=== PATIENT | female | born 1970 | race Two or more races ===

== ENCOUNTER → 2022-04-06 | Outpatient (CLI) | payer BC ==
[2022-04-07 10:16] LABS: Stool Occult Bld Immuno 1 Negative (NEGATIVE)
== END | disposition home or self-care (01) ==
LOC: LAB SHORT 04:19
PROVIDERS: Physician Assistant
DX: Z12.11 Encounter for screening for malignant neoplasm of colon (principal); Z12.12 Encounter for screening for malignant neoplasm of rectum
CPT/HCPCS: G0328

== ENCOUNTER → 2022-04-07 | Outpatient (CLI) | payer BC ==
[2022-04-15 15:11] LABS: HPV 16 Negative (Negative); HPV 18 Negative (Negative); HPV OTHER HR TYPES Positive (Negative)
== END | disposition home or self-care (01) ==
LOC: LAB 16:53 → LAB SHORT 16:53
PROVIDERS: Physician Assistant
DX: Z01.419 Encounter for gynecological examination (general) (routine) without abnormal findings (principal)
CPT/HCPCS: 87624; 87625; 88175

== ENCOUNTER → 2023-04-09 | Outpatient (CLI) | payer BC ==
[2023-04-23 08:17] LABS: HPV GENOTYPE 16 Not Detected; HPV GENOTYPE 18 Not Detected; HPV HIGH RISK Not Detected; HPV SOURCE Cervical
== END ==
LOC: LAB SHORT 17:19 → LAB 17:19
PROVIDERS: Physician Assistant
DX: Z01.419 Encounter for gynecological examination (general) (routine) without abnormal findings (principal)
CPT/HCPCS: 87624; G0123

== ENCOUNTER → 2024-04-21 | Outpatient (CLI) | payer BC ==
[2024-04-27 06:11] LABS: HPV HIGH RISK BY TMA Not Detected; HPV SOURCE Cervical
== END | disposition home or self-care (01) ==
LOC: LAB 17:44 → LAB SHORT 17:44
PROVIDERS: Physician Assistant
DX: Z01.419 Encounter for gynecological examination (general) (routine) without abnormal findings (principal)
CPT/HCPCS: 87624; G0123

== ENCOUNTER 2025-04-23 14:03 | Day surgery (SDC) | payer BC ==
[~2025-04-23] VITALS: Ht 172.7 cm; Wt 130.3 kg
[2025-04-23 14:25] VITALS: BP 143/80
[2025-04-23] MEDS ORDERED: METF500 PO (14:29)
[2025-04-23] MEDS ORDERED: OLME5TAB (14:29)
[2025-04-23] MEDS ORDERED: Prozac20 MG PO (14:30)
--- NOTE | 2025-04-23 14:31 | NUR ---
PT TO UNIT AMBULATORY WITH STEADY GAIT. ABLE TO USE THE RESTROOM INDEPENDENTLY. History, Chart, Medications and Allergies reviewed before start of procedure. Pre-Op teaching done. Pt verbalizes understanding. Patient States Post-Procedure ride home has been arranged WITH FRIEND. BELONGINGS INCLUDING PURSE AND GLASSES LEFT IN DAY SURGERY BAY. WARM BLANKET PROVIDED.
--- NOTE | 2025-04-23 15:20 | NUR ---
04/23/25 1520 Demian Clinton MONITOR INTACT WITH CONTINUOUS PULSE OXIMETRY, CONTINUOUS END TITAL CO2, 3-LEAD EKG AND INTERMITTENT BLOOD PRESSURE. O2 VIA POM INTACT THROUGHOUT SEDATION/PROCEDURE. History, Chart, Medications and Allergies reviewed before start of procedure. Bite Block Placed AT START OF UPPER ENDOSCOPY.
[2025-04-23 16:03] VITALS: BP 119/72
[2025-04-23 16:11] VITALS: BP 122/81
--- NOTE | 2025-04-23 16:32 | NUR ---
Discharge instructions reviewed with patient. Patient verbalizes understanding. Copy given to patient to take home. Discharged via wheelchair to private car for ride home.
== END 2025-04-23 16:30 | disposition home or self-care (01) ==
LOC: ORSCMMR 14:03 → ORD 15:30 → ORSCMMR 16:30
PROVIDERS: Family Medicine
PROC: 0DB98ZX Excision of Duodenum, Via Natural or Artificial Opening Endoscopic, Diagnostic (ICD-10-PCS; principal; 2025-04-23 15:30)
PROC: 0DB78ZX Excision of Stomach, Pylorus, Via Natural or Artificial Opening Endoscopic, Diagnostic (ICD-10-PCS; principal; 2025-04-23 15:30)
PROC: 0DBN8ZX Excision of Sigmoid Colon, Via Natural or Artificial Opening Endoscopic, Diagnostic (ICD-10-PCS; principal; 2025-04-23 15:30)
PROC: 0DBP8ZX Excision of Rectum, Via Natural or Artificial Opening Endoscopic, Diagnostic (ICD-10-PCS; principal; 2025-04-23 15:30)
DX: Z12.11 Encounter for screening for malignant neoplasm of colon (principal); K63.5 Polyp of colon; K62.1 Rectal polyp; Z01.818 Encounter for other preprocedural examination; K31.7 Polyp of stomach and duodenum; K29.80 Duodenitis without bleeding; K29.70 Gastritis, unspecified, without bleeding; E66.01 Morbid (severe) obesity due to excess calories; Z68.42 Body mass index [BMI] 45.0-49.9, adult; G47.33 Obstructive sleep apnea (adult) (pediatric); E78.5 Hyperlipidemia, unspecified; I12.9 Hypertensive chronic kidney disease with stage 1 through stage 4 chronic kidney disease, or unspecified chronic kidney disease; N18.2 Chronic kidney disease, stage 2 (mild); R73.03 Prediabetes; Z79.84 Long term (current) use of oral hypoglycemic drugs; Z79.899 Other long term (current) drug therapy
CPT/HCPCS: 82947; 88305; 88342; J2704; J7120